=== PATIENT | female | born 1985 | race Caucasian/White ===

== ENCOUNTER 2017-03-30 14:33 | Emergency (ER) | payer MEDICAID ==
[~2017-03-30] VITALS: Ht 162.6 cm; Wt 68.9 kg
[2017-03-30 14:39] VITALS: BP_SYST 109
[2017-03-30 16:06] VITALS: BP_SYST 120
== END 2017-03-30 16:06 | disposition home or self-care (01) ==
LOC: SED 14:33
DX: M25.531 Pain in right wrist (principal); W23.0XXA Caught, crushed, jammed, or pinched between moving objects, initial encounter; Y93.89 Activity, other specified; Y92.89 Other specified places as the place of occurrence of the external cause; Y99.8 Other external cause status
CPT/HCPCS: 99284

== ENCOUNTER 2017-10-24 14:38 | Emergency (ER) | payer MEDICAID ==
[~2017-10-24] VITALS: Ht 162.6 cm; Wt 72.6 kg
[2017-10-24 15:23] VITALS: BP_SYST 132
[2017-10-24 16:16] VITALS: BP_SYST 121
== END 2017-10-24 16:16 | disposition home or self-care (01) ==
LOC: SED 14:38
DX: H01.001 Unspecified blepharitis right upper eyelid (principal); G44.209 Tension-type headache, unspecified, not intractable
CPT/HCPCS: 99283